=== PATIENT | female | born 1995 | race Caucasian/White ===

== ENCOUNTER 2021-01-04 13:20 | Outpatient (CLI) | payer OTHER | END 2021-01-04 15:56 | disposition home or self-care (01) | LOC: GENOP 13:20 | DX: O62.8 Other abnormalities of forces of labor (principal); Z3A.20 20 weeks gestation of pregnancy | CPT/HCPCS: 81001; 82731; G0463 ==

== ENCOUNTER 2021-03-17 16:08 | Inpatient (IN) | payer OTHER ==
[~2021-03-17] VITALS: Ht 167.6 cm; Wt 86.2 kg
[2021-03-17 17:23] LABS: HEMOGLOBIN 9.5 gm/dl (12.3-15.3); RED BLOOD COUNT 3.49 M/UL (4.00-5.10); WHITE BLOOD COUNT 9.5 K/UL (4.5-11.0)
[2021-03-17] MEDS ORDERED: PEPCID20 MG PO (18:37)
[2021-03-17] MEDS ORDERED: PRENATAL VITAM1 EAC6 PO (18:38)
[2021-03-18] MEDS ORDERED: DOCUSATE SODIU100 MG PO (21:49)
[2021-03-18] MEDS ORDERED: IBUPROFEN600 MG PO (21:49)
[2021-03-18] MEDS ORDERED: HYDROCODON-ACE1 EAC4 PO (21:49)
[2021-03-20] MEDS ORDERED: MEDROL DOSEPAK 24 MG PO (08:47)
== END 2021-03-20 10:17 | disposition home or self-care (01) | DRG 807 ==
LOC: GENOP 16:08 → OB 16:31
PROVIDERS: Obstetrics & Gynecology; ADMIT Obstetrics & Gynecology
PROC: 10E0XZZ Delivery of Products of Conception, External Approach (ICD-10-PCS; principal; 2021-03-17)
PROC: 0KQM0ZZ Repair Perineum Muscle, Open Approach (ICD-10-PCS; 2021-03-17)
PROC: 4A1HXCZ Monitoring of Products of Conception, Cardiac Rate, External Approach (ICD-10-PCS; 2021-03-17)
PROC: 00HU33Z Insertion of Infusion Device into Spinal Canal, Percutaneous Approach (ICD-10-PCS; 2021-03-17)
PROC: 3E0R3BZ Introduction of Anesthetic Agent into Spinal Canal, Percutaneous Approach (ICD-10-PCS; 2021-03-17)
PROC: 10907ZC Drainage of Amniotic Fluid, Therapeutic from Products of Conception, Via Natural or Artificial Opening (ICD-10-PCS; 2021-03-17)
DX: O69.81X0 Labor and delivery complicated by cord around neck, without compression, not applicable or unspecified (principal); Z37.0 Single live birth; O70.1 Second degree perineal laceration during delivery; O99.02 Anemia complicating childbirth; Z20.822 Contact with and (suspected) exposure to COVID-19; Z3A.39 39 weeks gestation of pregnancy; D64.9 Anemia, unspecified; Z90.49 Acquired absence of other specified parts of digestive tract
CPT/HCPCS: 36415; 59025; 81001; 82800; 85014; 85018; 85025; 90707; 90715; J2405; J2590; J7120; Q0177; U0002